=== PATIENT | female | born 1955 | race Caucasian/White ===

== ENCOUNTER 2021-04-17 11:26 | Outpatient (CLI) | payer MEDICARE | END 2021-04-17 11:27 | disposition home or self-care (01) | LOC: CSHMAMMO 11:26 | PROVIDERS: ATTEND Family Medicine | DX: Z12.31 Encounter for screening mammogram for malignant neoplasm of breast (principal) | CPT/HCPCS: 77063; 77067 ==

== ENCOUNTER 2022-05-10 14:25 | Outpatient (CLI) | payer MEDICARE, OTHER | END 2022-05-10 14:26 | disposition home or self-care (01) | LOC: CSHMAMMO 14:25 | PROVIDERS: ATTEND Family Medicine | DX: Z12.31 Encounter for screening mammogram for malignant neoplasm of breast (principal); Z91.89 Other specified personal risk factors, not elsewhere classified | CPT/HCPCS: 77063; 77067 ==

== ENCOUNTER 2024-03-07 13:08 | Outpatient (CLI) | payer OTHER | END 2024-03-07 13:09 | disposition home or self-care (01) | LOC: CSHRAD 13:08 | PROVIDERS: ATTEND Nurse Practitioner Family | DX: S89.92XA Unspecified injury of left lower leg, initial encounter (principal); S09.93XA Unspecified injury of face, initial encounter; M79.89 Other specified soft tissue disorders; M17.12 Unilateral primary osteoarthritis, left knee | CPT/HCPCS: 70150 ==